=== PATIENT | male | born 1965 | race Caucasian/White ===

== ENCOUNTER → 2020-11-22 01:51 | Outpatient (CLI) | payer SELFPAY ==
[2020-11-22 19:54] LABS: SARS-CoV-2 RNA PCR Negative
== END ==
PROVIDERS: PCP Family Medicine; Visit Provider Physician Assistant
DX: Z20.822 Contact with and (suspected) exposure to COVID-19 (principal)
CPT/HCPCS: C9803; U0003; U0005

== ENCOUNTER 2024-09-04 08:09 | Outpatient (CLI) | payer BC, SELFPAY ==
--- NOTE | ~2024-09-04 | US_ITS ---
EXAMINATION:US venous doppler LE LT INDICATION:Left leg pain TECHNIQUE: Multiple grayscale, color flow and Doppler images of the left lower extremity deep venous systems were obtained and reviewed. COMPARISON:No prior studies for comparison. FINDINGS: The common femoral, superficial femoral and popliteal veins demonstrate normal respiratory variation, augmentation and compressibility. Color flow is also seen within the posterior tibial, pe roneal, greater saphenous and profunda veins. IMPRESSION: 1: No lower extremity deep venous thrombosis. Reviewed, dictated and finalized at location []
--- OUTSIDE RECORDS SUMMARY | 2024-09-04 08:17 | XMS_ITS | Continuity of Care Document ---
Author Organization [facility] Address [address] [place] [address] Phone Care Team Providers Care Senior Functional Analyst Name Role Phone Justin MATA, Maira Unavailable Unavailable Kit RN, Minnie Unavailable Unavailable Advance Directives Directive Yes / No Effective Date File Name No Information Encounters Encounter Description Practice Location Reason(s) For Visit Diagnoses Date Provider Providers Copied on Encounter [facility] , [address], [place], [place], [id number], tel:[phone] [facility] No Information Justin Rao. [address], [place], [place], [id number], . tel:[phone] Consulting Provider: Minnie Pantoja, [address], [place], [address]. tel:[phone] Family History Family Member Type Diagnosis Age At Onset No Information Payers Payer name Insurance type Covered libertarian ID Authoriza tion(s) No Information Social History Type Description Quantity Date Captured Comments Sex Male Smoking Status No Information Chief Complaint And Reason For Visit No Information Reason For Referral Reason For Referral No Information History Of Present Illness Encounter Date Complaint History Of Prese nt Illness No Information Functional Status Date Functional Assessmen t No Information Instructions Date Instruction Additional Infor mation No Information Assessments Type Assessment Date No Information Patient Care Teams Name Effective Dates (start - stop) Status Members No Information
--- OUTSIDE RECORDS SUMMARY | 2024-09-04 08:17 | XMS_ITS | Patient Health Record ---
Author Organization [facility] giuseppe Me Address [address] [place], [place] [id number] Reason For Referral No Information Immunizations Vaccine Route Administration Date Status Comme nts Pfizer 1st Dose IM Intramuscular 04/22/2020 Administered Pfizer 2nd Dose IM Intramuscular 05/13/2020 Administered Social History Sex Assigned At : Social History Observation Description Sex Assigned At Male Plan Of Treatment No Information Insurance Providers Payer Name Payer Address Payer Phone Subscriber Number Group Number Insured Name Patient Relationship to Insured Coverage Start Date Coverage End Date [facility] [address] [facility], [place] [id number] Germán Araiza Self - patient is the insured
== END 2024-09-04 08:10 | disposition home or self-care (01) ==
PROVIDERS: PCP Family Medicine
DX: M79.605 Pain in left leg (principal); M79.89 Other specified soft tissue disorders
CPT/HCPCS: 93971